=== PATIENT | female | born 1945 | race Hispanic/Latino ===

== ENCOUNTER 2023-08-31 10:46 | Emergency (ER) | payer MEDICARE ==
[2023-08-31 11:59] VITALS: BP 159/69
[2023-08-31 12:00] VITALS: BP 138/62
[2023-08-31 12:15] VITALS: BP 121/57
[2023-08-31 12:31] VITALS: BP 140/70
[2023-08-31] MEDS ORDERED: KURIC21 EX (12:39)
[2023-08-31] MEDS ORDERED: DIFLUCAN150 MG PO (12:39)
[2023-08-31 12:47] VITALS: BP 140/70
== END 2023-08-31 12:55 | disposition home or self-care (01) ==
LOC: ED 10:46
DX: L30.4 Erythema intertrigo (principal)

== ENCOUNTER 2024-08-31 13:25 | Emergency (ER) | payer MEDICARE ==
[~2024-08-31] VITALS: Ht 154.9 cm; Wt 65.9 kg
[2024-08-31] VITALS (8 sets, daily range): BP systolic 123–145; BP diastolic 51–75
[~2024-08-31 13:25] MED LIST: DIFLUCAN150 MG PO; KURIC21 EX
[2024-08-31] MEDS ORDERED: METHOCARBAMOL500 MG PO (17:40)
== END 2024-08-31 18:08 | disposition home or self-care (01) ==
LOC: ED 13:25
DX: S50.312A Abrasion of left elbow, initial encounter (principal); T14.8XXA Other injury of unspecified body region, initial encounter; M25.562 Pain in left knee; M25.561 Pain in right knee; M79.651 Pain in right thigh; G91.9 Hydrocephalus, unspecified; Y92.512 Supermarket, store or market as the place of occurrence of the external cause; W19.XXXA Unspecified fall, initial encounter; Z91.81 History of falling